=== PATIENT | female | born 1970 | race Caucasian/White ===

== ENCOUNTER 2019-10-31 10:58 | Outpatient (RCR) | payer OTHER | END 2019-11-05 | LOC: PT 10:58 | PROVIDERS: ATTEND Neurological Surgery | DX: G93.5 Compression of brain (principal); M54.2 Cervicalgia; R29.3 Abnormal posture; M62.81 Muscle weakness (generalized) ==

== ENCOUNTER 2019-11-16 10:57 | Outpatient (RCR) | payer OTHER | END 2019-12-06 | LOC: PT 10:57 | PROVIDERS: ATTEND Neurological Surgery | DX: G93.5 Compression of brain (principal); M54.2 Cervicalgia; R29.3 Abnormal posture; M62.81 Muscle weakness (generalized) | CPT/HCPCS: 97139 ==